=== PATIENT | female | born 1955 | race Caucasian/White ===

== ENCOUNTER 2017-01-29 13:36 | Observation (INO) | payer MEDICAID ==
[2017-01-29 13:36] VITALS: BMI 30.9
--- NOTE | 2017-01-29 16:05 | C.PDOC ---
History Of Present Illness 61F c/o SALDIVAR and intermittent sharp "electricity"-like left side chest pain down her left arm for the last "3 to 4 months." pain lasts for seconds at a time. no exac or reliev fx. Time Seen by Provider: 01/29/17 15:20 Chief Complaint (Nursing): Chest Pain Past Medical History Vital Signs: Last Vital Signs Temp 98.3 F 01/29/17 14:19 Pulse 79 01/29/17 14:19 Resp 20 01/29/17 14:19 BP 141/68 01/29/17 15:20 Pulse Ox 98 01/29/17 16:05 - Medical History PMH: HTN, Chronic Pain (Back Pain) Family History: States: Unknown Family Hx - Social History Hx Tobacco Use: No Hx Alcohol Use: No Hx Substance Use: No - Immunization History Hx Tetanus Toxoid Vaccination: No Hx Influenza Vaccination: No Hx Pneumococcal Vaccination: No Review Of Systems Except As Marked, All Systems Reviewed And Found Negative. Constitutional: Negative for: Fever Cardiovascular: Positive for: Chest Pain. Negative for: Light Headedness Respiratory: Positive for: Shortness of Breath. Negative for: Cough, Hemoptysis , Wheezing Gastrointestinal: Negative for: Vomiting, Abdominal Pain Genitourinary: Negative for: Dysuria Physical Exam - Physical Exam Appears: Well, Non-toxic, No Acute Distress Skin: Warm, Dry Eye(s): bilateral: PERRL Oral Mucosa: Moist Neck: Normal ROM Cardiovascular: Rhythm Regular, No Murmur Respiratory: No Decreased Breath Sounds, No Rhonchi, No Stridor, No Wheezing Gastrointestinal/Abdominal: Soft, No Tenderness Extremity: No Swelling Pulses: Left Radial: Normal, Right Radial: Normal Neurological/Psych: Oriented x3, Other (no focal deficits) ED Course And Treatment - Laboratory Results Result Diagrams: 01/29/17 16:11 O2 Sat by Pulse Oximetry: 98 Medical Decision Making Medical Decision Making: ecg- nsr, nl axis, nl int, no acute ischemia
[2017-01-29 16:15] LABS: BASO # 0.1 K/uL (0.0-0.2); BASO % 0.9 % (0.0-2.0); EOS # 0.3 K/uL (0.0-0.7); HEMATOCRIT 39.8 % (34.0-47.0); LYMPH # 2.5 K/uL (1.0-4.3); LYMPH % 30.8 % (20.0-40.0); MEAN CELL VOLUME 93.1 fL (81.0-99.0); MEAN CORPUSCULAR HEMOGLOBIN 30.3 pg (27.0-31.0); MEAN CORPUSCULAR HGB CONC 32.5 g/dL (33.0-37.0); MEAN PLATELET VOLUME 10.9 fL (7.2-11.7); MONO # 0.8 K/uL (0.0-0.8); MONO % 9.5 % (0.0-10.0); NRBC % 0.1 % (0.0-2.0); RED CELL DISTRIBUTION WIDTH 13.5 % (11.5-14.5); WHITE BLOOD COUNT 8.2 K/uL (4.8-10.8)
[2017-01-29 16:54] LABS: CHLORIDE 94 mmol/L (98-107); SODIUM 139 mmol/L (132-148)
[2017-01-29 16:55] LABS: POTASSIUM 3.6 mmol/L (3.6-5.2)
[2017-01-29 16:56] LABS: BILIRUBIN,TOTAL 0.6 mg/dL (0.2-1.3); GFR AFRICAN-AMERICAN > 60
--- NOTE | 2017-01-29 16:56 | RAD ---
HISTORY: cp COMPARISON: No prior. TECHNIQUE: Chest PA and lateral FINDINGS: LUNGS: No active pulmonary disease. PLEURA: No significant pleural effusion identified. No pneumothorax apparent. CARDIOVASCULAR: Mild cardiomegaly OSSEOUS STRUCTURES: Thoracic spondylosis VISUALIZED UPPER ABDOMEN: Normal. OTHER FINDINGS: None. IMPRESSION: Clear lungs. Mild cardiomegaly
[2017-01-29 16:57] LABS: ALB/GLOB RATIO 1.2 (1.0-2.1); ALKALINE PHOSPHATASE 88 U/L (38-126); ALT/SGPT 34 U/L (9-52); AST/SGOT 27 U/L (14-36); BLOOD UREA NITROGEN 16 mg/dL (7-17); CARBON DIOXIDE 29 mmol/L (22-30); GLUCOSE,RANDOM 97 mg/dL (65-105); TOTAL PROTEIN 8.3 g/dL (6.3-8.3)
[2017-01-29 16:58] LABS: CALCIUM 9.5 mg/dl (8.6-10.4)
[2017-01-29 17:57] VITALS: PULSE 66; O2SAT 96
[2017-01-29 19:50] VITALS: BP 141/69; RESP 18; TEMP 98.2
--- NOTE | 2017-01-30 11:59 | CARD ---
APPROVED REPORT EKG Measurement Heart [id number] VT [id number] [id number] <Conclusion> Normal sinus rhythm Normal ECG
== END 2017-01-29 21:00 | disposition left against medical advice (07) ==
LOC: C.ER 13:36 → C.9E 18:12 → C.6T 22:58 → C.9E 22:58
PROVIDERS: ADMIT Internal Medicine Pulmonary Disease; ATTEND Internal Medicine Pulmonary Disease
DX: M79.602 Pain in left arm (principal); I10 Essential (primary) hypertension